=== PATIENT | female | born 1965 ===

== ENCOUNTER 2017-02-20 17:57 | Emergency (ER) | payer MEDICAID ==
[2017-02-20 18:03] VITALS: BP 122/81; PULSE 76; RESP 16; TEMP 98.1; O2SAT 98
--- NOTE | 2017-02-20 19:03 | C.PDOC ---
History Of Present Illness 51 y/o female with htn and hypothyroidism c/o itchy rash (worse after showering ) to neck, anterior and posterior torso since Friday. Pt was seen by pmd on Friday and told to use an antifungal cream. pt has used clotrimazole with no change in rash. pt sts taking benadryl at night helps with the itch, but it returns in the day. pt denies any new soaps, detergents, foods or skin products. no fever or chills. no difficulty swallowing or breathing. Time Seen by Provider: 02/20/17 18:12 Chief Complaint (Nursing): Abnormal Skin Integrity History Per: Patient History/Exam Limitations: no limitations Onset/Duration Of Symptoms: Days (4) Quality Of Symptoms: Itching Severity: Mild Past Medical History Reviewed: Historical Data, Nursing Documentation, Vital Signs Vital Signs: Last Vital Signs Temp 98.1 F 02/20/17 18:01 Pulse 76 02/20/17 18:01 Resp 16 02/20/17 18:01 BP 122/81 02/20/17 18:01 Pulse Ox 98 02/20/17 19:22 - Medical History PMH: HTN, Hypothyroidism Surgical History: Cholecystectomy, Family History: States: Unknown Family Hx - Social History Hx Tobacco Use: No Hx Alcohol Use: Yes Hx Substance Use: No - Immunization History Hx Tetanus Toxoid Vaccination: No Hx Influenza Vaccination: Yes (2014) Hx Pneumococcal Vaccination: No Review Of Systems Constitutional: Negative for: Fever, Chills ENT: Negative for: Mouth Pain, Throat Pain, Throat Swelling Cardiovascular: Negative for: Chest Pain Respiratory: Negative for: Cough, Shortness of Breath Skin: Positive for: Rash Physical Exam - Physical Exam Appears: Non-toxic, No Acute Distress Skin: Normal Color, Warm, Dry, Rash, Other (small 1-2 cm scattered urticaria to abdomen and upper chest and anterior neck; back with scattered irregular patches , rough texture, mildy erythematous. ) Nose: Normal Oral Mucosa: Moist Tongue: Normal Appearing, No Swelling Lips: Normal Appearing, No Swelling Throat: Normal, No Erythema, No Exudate, No Mass Cardiovascular: Rhythm Regular, No Murmur Respiratory: Normal Breath Sounds, No Rales, No Rhonchi, No Stridor, No Wheezing ED Course And Treatment O2 Sat by Pulse Oximetry: 98 Medical Decision Making Medical Decision Making: Pt tried clotriamzole for rash x 4 days with no improvement; will switch to hydrocortisone cream, claritin during day and benadryl at night with derm and pmd f/u/ Disposition Counseled Patient/Family Regarding: Diagnosis, Need For Followup, Rx Given - Disposition Referrals: Juanjo Tineo MD [Staff Provider] - [facility] [Outside] Disposition: HOME/ ROUTINE Disposition Time: 19:01 Condition: STABLE Additional Instructions: Take Claritin during the day and Benadryl at bedtime. Apply hydrocortisone cream to affected areas twice a day. Follow up with your doctor in a few days. Call [employer] to help you find a air cargo specialist supervisor. Return to ER for worsening rash, fever, difficulty breathing, swelling to face, tongue or lips. Prescriptions: Loratadine [Claritin] 10 mg PO DAILY #14 tab Hydrocortisone 1% Cream [Cortizone 1% Cream] 1 appl TP BID #1 tube Instructions: Acute Rash (ED), Urticaria (ED) Forms: Gen Discharge Inst German Print Language: LIBYAN - Clinical Impression Clinical Impression: Urticaria, Rash
== END 2017-02-20 19:21 | disposition home or self-care (01) ==
LOC: C.ER 17:57
DX: L50.9 Urticaria, unspecified (principal)